=== PATIENT | male | born 1965 ===

== ENCOUNTER → 2018-03-01 13:59 | Outpatient (REF) | payer OTHER, SELFPAY ==
[2018-03-01 15:19] LABS: Creatine Kinase 122 U/L (55-170)
[2018-03-01 15:49] LABS: Prostate Specific Antigen 0.493 ng/mL (0.10-4.00)
[2018-03-01 16:47] LABS: Vitamin D 25 Hydroxy (D3) 40.9 ng/mL (30.0-100.0)
[2018-03-02 11:06] LABS: Alanine Aminotransferase 46 IU/L (21-72); Albumin Globulin Ratio 1.3 (1.0-2.8); Alkaline Phosphatase 58 U/L (38-126); Aspartate Aminotransferase 51 IU/L (17-59); BUN Creatinine Ratio 12.5 (6-22); Bilirubin Total 0.7 mg/dL (0.2-1.3); Blood Urea Nitrogen 15 mg/dL (9-20); Carbon Dioxide 21 mmol/L (22-32); Chloride 105 mmol/L (98-107); Estimated Glomerular Filt Rate > 60.0 mL/min (>60); Glucose 84 mg/dL (70-100); HEMOLYSIS < 15 (0-50); Potassium 4.3 mmol/L (3.4-5.1); Sodium 145 mmol/L (137-145)
== END ==
LOC: LAB 13:59
PROVIDERS: Visit Provider Family Medicine
DX: Z00.00 Encounter for general adult medical examination without abnormal findings (principal)
CPT/HCPCS: 36415; 80053; 82306; 82550; 84153; 84403